=== PATIENT | male | born 1995 | race Native Hawaiian/Other Pacific Islander ===

== ENCOUNTER 2017-11-17 01:04 | Emergency (ER) | payer OTHER ==
[2017-11-17 01:44] VITALS: BP 138/84; PULSE 75; RESP 16; TEMP 98.6; O2SAT 99
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
== END 2017-11-17 02:50 | disposition home or self-care (01) ==
LOC: H.ER 01:04
DX: S39.012A Strain of muscle, fascia and tendon of lower back, initial encounter (principal); V49.49XA Driver injured in collision with other motor vehicles in traffic accident, initial encounter

== ENCOUNTER 2018-01-13 15:13 | Emergency (ER) | payer MEDICAID, OTHER ==
[2018-01-13 15:34] VITALS: BP 156/80; PULSE 70; RESP 18; TEMP 98.4; O2SAT 100
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
[2018-01-13 16:24] LABS: SQUAMOUS EPITHIAL < 1 /hpf (0-5); URINE BILIRUBIN NEGATIVE (NEGATIVE); URINE BLOOD NEGATIVE (NEGATIVE); URINE CLARITY CLEAR (Clear); URINE COLOR YELLOW (YELLOW); URINE GLUCOSE (UA) NEG (Normal); URINE LEUKOCYTE ESTERASE NEG Leu/uL (Negative); URINE PROTEIN NEGATIVE (NEGATIVE); URINE UROBILINOGEN 0.2-1.0 mg/dL (0.2-1.0)
== END 2018-01-13 17:26 | disposition home or self-care (01) ==
LOC: H.ER 15:13
DX: M54.5 Low back pain (principal); R30.0 Dysuria
CPT/HCPCS: 81003; 87086; 87491; 87591; 96372; 99282; J1885